=== PATIENT | female | born 2000 | race Caucasian/White ===

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

== ENCOUNTER 2022-03-09 13:19 | Emergency (ER) | payer OTHER, BC, SELFPAY ==
[2022-03-09 13:27] VITALS: BP 102/69; PULSE 85; RESP 12; TEMP 36.6; O2SAT 100; BMI 19.7
--- NOTE | 2022-03-09 13:30 | W.ED.ABDPA2 ---
HPI - Abdominal Pain General: Chief Complaint: Abdominal Pain Stated Complaint: abd pains Time Seen by Provider: 03/09/22 13:27 Source: patient and family (mother) Mode of arrival: ambulatory Limitations: no limitations History of Present Illness: Patient is a nice 21-year-old female who presents to ED today along with her mother after they were sent here from the [facility] for concerns of possible acute appendicitis. Patient tells me she began having pain to her right lower quadrant yesterday. She states since onset pain has progressively worsened. She does have feelings of nausea but has not had any episodes of emesis. She feels like bowel movements are normal but has noticed some bright red blood on the toilet paper when she wipes. Patient states she is currently on her menstrual cycle and is not sure if the blood could be coming from vagina. 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 She states her pain today does not feel anything like previous stones. She is not having any urinary symptoms. No fevers. MD elicited complaint: abdominal pain Onset (ago): day(s) (yesterday) Pain Consistency: constant Location: RLQ Quality: sharp Radiation: none Migration to: no migration Exacerbating factors: movement Relieving factors: nothing Associated Symptoms: Reports nausea and other (bright red blood when wiping but is not sure if this is menstrual blood); Denies change in bowel habits, change in stool character, chills, constipation, diarrhea, dysuria, fever(s), heartburn, hematochezia, hematuria, hematemesis, melena and vomiting Related Data: Patient : No Review of Systems Const: Denies: fever(s), chills, body aches, fatigue or malaise Card: Denies: chest pain Resp: Denies: dyspnea GI: Reports: abdominal pain, nausea and other (bright red blood when wiping but is not sure if this is menstrual blood); Denies: vomiting, hematemesis, heartburn, diarrhea, constipation, change in bowel habits, rectal pain, rectal swelling, rectal itching, change in stool character, hematochezia or melena : Reports: vaginal bleeding (on menstrual cycle); Denies: flank pain, difficulty voiding, dysuria, urinary frequency, urinary urgency, urinary hesitancy, oliguria, hematuria, vaginal odor or vaginal discharge Musc: Denies: neck pain, back pain, extremity pain or joint pain Skin/Breast: Denies: rash Neuro: Denies: headache(s) or dizziness PFSH ED PFSH: Social History Smoking and tobacco status: never smoked Alcohol intake: never Current gender identity: Female Female Reproductive History: Spontaneous abortions: No Physical Exam Const: COMMON NORMALS: no acute distress, average body habitus, patient oriented x3, no limitations, healthy appearing, alert and well nourished GENERAL APPEARANCE: cooperative ORIENTATION/CONSCIOUSNESS: Yes awake, Yes oriented to person, Yes oriented to place and Yes oriented to time Resp: COMMON NORMALS: normal respiratory effort and clear to auscultation bilaterally AUSCULTATION: clear to auscultation bilaterally Cardio: COMMON NORMALS: regular rate and regular rhythm RATE: regular rate RHYTHM: regular rhythm GI: COMMON NORMALS: Normal to inspection, nondistended, normoactive bowel sounds present, Soft to palpation, No hepatosplenomegaly present and no masses INSPECTION: Yes normal to inspection AUSCULTATION: Yes normoactive bowel sounds PALPATION: Yes Soft to palpation, Yes Tenderness to palpation present (GI) (grimaces with palpation over McBurney's Point) Details: RLQ, No Guarding due to palpation present (GI), No Rigid due to palpation and Yes No hepatosplenomegaly present : COMMON NORMALS: Yes no CVA tenderness BLADDER/KIDNEY EXAM: Yes no CVA tenderness Back/Pelvis: COMMON NORMALS: no CVA tenderness, thoracic and lumbar spine normal to inspection, no thoracic nor lumbar tenderness and thoraco-lumbar ROM normal Extremity: COMMON NORMALS: normal to inspection GENERAL: Yes normal exam except as noted Neuro: BIN COMA SCALE: document GCS findings Bin coma scale eye opening: Spontaneous Bin coma scale verbal response: Orientated [place] coma scale motor response: Obey commands Bin coma scale total score: 15 COMMON NORMALS: patient oriented x3, moves all extremities, no focal motor deficits, no sensory deficits noted and gait normal SENSORIUM/ORIENTATION: Yes alert, Yes oriented to person, Yes oriented to place and Yes oriented to time Skin: COMMON NORMALS: no rashes or lesions noted GENERAL SKIN EXAM: no rashes or lesions noted Course Vital Signs: Vital signs: Vital Signs Temperature 97.8 F 03/09/22 13:27 Pulse Rate 87 03/09/22 15:55 Respiratory Rate 16 03/09/22 15:55 Blood Pressure 113/66 03/09/22 15:55 Pulse Oximetry 98 03/09/22 15:55 Oxygen Delivery Me thod 03/09/22 13:27 MDM - Abdominal Pain Medical Decision Making Patient's vital signs are normal. Her blood work overall is unremarkable. CT imaging ordered due to patient's localized tenderness to her right lower quadrant. She has a normal appendix. There is no right ureter or kidney stones. Ovary appeared normal. She does have extensive fecal retention with a large amount of fecal material in her right adnexa most likely responsible for the discomfort that she is having. Radiologist did mention the possibility of early IBS/Crohn's disease. Mother states they will follow-up with patient's primary care regarding this. Discussed treatment for constipation including MiraLAX, Colace, Senokot, increasing fiber intake as well as other OTC medications if these are unsuccessful such as milk of mag and mag citrate. Return to ED precautions given. Lab Data : 03/09/22 14:02 03/09/22 14:02 Labs/Radiology: Radiology Impressions Abdomen/Pelvis CT 03/09/22 13:52 IMPRESSION: 1. Normal appendix. 2. No renal obstruction. Patient did have very small bilateral nonobstructing calculi within the renal pelves on a prior CT from 02/11/2019. A very tiny calculus noted in the LEFT kidney. These calcifications may be obscured by the IV contrast injection. 3. Extensive fecal retention. There is a large amount of fecal material in the RIGHT adnexa. Terminal ileum is difficult to visualize but there is a dilated loop of small bowel in the RIGHT pelvis measuring up to 18 mm. Early changes of IBS/Crohn's disease should be considered. Laboratory Results WBC 4.7 10^3/uL (4.5-13.0) 03/09/22 14:02 RBC 4.31 10^6/uL (4.1-5.3) 03/09/22 14:02 Hgb 12.9 g/dL (11.5-15.3) 03/09/22 14:02 Hct 39.5 % (37.0-47.0) 03/09/22 14:02 MCV 91.6 fl (81-99) 03/09/22 14:02 MCH 29.9 pg (28.0-34.0) 03/09/22 14:02 MCHC 32.7 g/dL (30.0-36.0) 03/09/22 14:02 RDW 13.8 % (12.1-15.1) 03/09/22 14:02 Plt Count 288 10^3/cmm (130-400) 03/09/22 14:02 MPV 10.3 fL (7.4-10.4) 03/09/22 14:02 Neut % (Auto) 34.0 % 03/09/22 14:02 Lymph % (Auto) 54.4 % 03/09/22 14:02 Bent % (Auto) 8.4 % 03/09/22 14:02 Eos % (Auto) 2.4 % 03/09/22 14:02 Baso % (Auto) 0.6 % 03/09/22 14:02 Neut # (Auto) 1.59 10^3/uL (1.8-8.0) L 03/09/22 14:02 Lymph # (Auto) 2.5 10^3/uL (1.5-6.5) 03/09/22 14:02 Bent # (Auto) 0.4 10^3/uL (0.2-0.9) 03/09/22 14:02 Eos # (Auto) 0.1 10^3/uL (0.0-0.8) 03/09/22 14:02 Baso # (Auto) 0.0 10^3/uL (0.0-0.1) 03/09/22 14:02 Nucleated RBC % (auto) 0 % 03/09/22 14:02 Nucleated RBCs # 0.0 /100WBC 03/09/22 14:02 Sodium 138 mmol/L (136-145) 03/09/22 14:02 Potassium 4.3 mmol/L (3.5-5.1) 03/09/22 14:02 Chloride 102 mmol/L (98-107) 03/09/22 14:02 Carbon Dioxide 26 mmol/L (22-29) 03/09/22 14:02 Anion Gap 14.3 (5-19) 03/09/22 14:02 BUN 12 mg/dL (6-20) 03/09/22 14:02 Creatinine 0.6 mg/dL (0.5-0.9) 03/09/22 14:02 GFR Calculation 128.8 mL/min (90-130) 03/09/22 14:02 Glucose 94 mg/dL (65-115) 03/09/22 14:02 Calculated Osmolality 286 mOsm/kg (285-295) 03/09/22 14:02 Calcium 9.3 mg/dL (8.5-10.5) 03/09/22 14:02 Total Bilirubin 0.4 mg/dL (0.15-1.2) 03/09/22 14:02 AST 17 U/L (0-32) 03/09/22 14:02 ALT 16 U/L (0-33) 03/09/22 14:02 Alkaline Phosphatase 55 U/L (35-105) 03/09/22 14:02 Total Protein 7.5 g/dL (6.6-8.7) 03/09/22 14:02 Albumin 4.8 g/dL (3.5-5.2) 03/09/22 14:02 Globulin 2.7 g/dL (1.3-4.6) 03/09/22 14:02 Lipase 29 U/L (13-60) 03/09/22 14:02 Urine HCG, Qual Negative (Negative) 03/09/22 14:02 Discharge Plan Discharge Patient Disposition: Home Clinical Impression: Fecal retention Qualifiers: Constipation type: unspecified constipation type Qualified Code(s): K59.00 - Constipation, unspecified Condition: Stable Prescriptions: No Action albuterol sulfate 90 mcg/actuation HFA aerosol inhaler 2 puff INHALATION Q6H PRN (Reason: shortness of breath or wheezing) Qty: 8.5 0RF citalopram [Celexa] 10 mg Tablet 10 mg PO DAILY PRN (Reason: Anxiety) Tylenol Ex Str Rapid Release 500 mg Tablet 1,000 mg PO Q6H PRN (Reason: Pain) ibuprofen 200 mg Tablet 800 mg PO Q6H PRN (Reason: Pain) Discharge Orders: Discharge ED (Routine); Ordered 03/09/22 Ordered By: Wendie Choe Referrals: Yanira Barbour FNP [Primary Care Provider] - Patient Instructions: Constipation (DC) Coding Level of Care Code ED Personnel Scheduler for Chg Fwd Exam Comprehensive
[2022-03-09 13:34] VITALS: BP 114/81; PULSE 81; O2SAT 100
--- NOTE | 2022-03-09 13:52 | CT_ITS ---
WS: [id number] CT ABDOMEN AND PELVIS WITH CONTRAST HISTORY: RLQ abdominal pain TECHNIQUE: Imaging performed of the abdomen and pelvis with IV contrast. Single phase imaging of the abdomen. Coronal and sagittal reformats are submitted. All CT scans at [facility] use at [address] one of these dose optimization techniques: automated exposure control; mA and/or kV adjustment per patient size (includes targeted exams where dose is matched to clinical indication); or iterative re construction. IV CONTRAST: Omnipaque 350; 95 mL IV. Oral contrast: No DLP: 326.73 mGy.cm COMPARISON: 02/11/2019 Lower thorax: Lung bases are clear. Heart is normal size. No hiatal hernia. Liver/biliary system: Normal size with no intrahepatic dilatation. Gallbladder: Normal. No gallstones or wall thickening. No pericholecystic fluid. Pancreas: Normal size pancreas and pancreatic duct. No adjacent inflammation. Spleen: Normal size spleen. No mass or infarct. Adrenal glands: Normal. Right kidney: Normal. Left kidney: No obstruction. There are a few tiny calculi present. Aorta: Normal. Lymphadenopathy: None. Free fluid: None. GI tract: There is extensive fecal retention and constipation throughout the colon. The cecum is very low-lying and extends into the RIGHT adnexa. It is difficult to visualize the terminal ileum. There is a loop of small bowel which may be the terminal ileum mildly distended with fluid and fecalization . No wall thickening. The appendix is normal. Abdominal wall: Unremarkable abdominal wall. No hernia. Pelvis: Retroverted uterus. Small amount of increased fluid within the endometrial canal which may be related to the menstrual cycle. Both ovaries are identified and contain small follicles. Bones: Unremarkable. CT/CT abdomen pelvis w con* [id number] IMPRESSION: 1. Normal appendix. 2. No renal obstruction. Patient did have very small bilateral nonobstructing calculi within the renal pelves on a prior CT from 02/11/2019. A very tiny calcul us noted in the LEFT kidney. These calcifications may be obscured by the IV con trast injection. 3. Extensive fecal retention. There is a large amount of fecal material in the RIGHT adnexa. Terminal ileum is difficult to visualize but there is a dilated l oop of small bowel in the RIGHT pelvis measuring up to 18 mm. Early changes of IBS/Crohn's disease should be considered.
[2022-03-09 14:11] LABS: Basophils % 0.6 %; Eosinophils # 0.1 10^3/uL (0.0-0.8); Eosinophils % 2.4 %; Hematocrit 39.5 % (37.0-47.0); Hemoglobin 12.9 g/dL (11.5-15.3); Lymphocytes # 2.5 10^3/uL (1.5-6.5); Lymphocytes % 54.4 %; Mean Corpuscular HGB Conc 32.7 g/dL (30.0-36.0); Mean Corpuscular Hemoglobin 29.9 pg (28.0-34.0); Mean Corpuscular Volume 91.6 fl (81-99); Mean Platelet Volume 10.3 fL (7.4-10.4); Monocytes # 0.4 10^3/uL (0.2-0.9); Monocytes % 8.4 %; Neutrophils # 1.59 10^3/uL (1.8-8.0); Nucleated Red Blood Cells % 0 %; Platelet Count 288 10^3/cmm (130-400); Red Blood Count 4.31 10^6/uL (4.1-5.3); Red Cell Distribution Width 13.8 % (12.1-15.1); White Blood Count 4.7 10^3/uL (4.5-13.0)
--- NOTE | 2022-03-09 14:11 | PC.NURSE ---
pt reports right sided suprapubic pain worse with palpation that began last night. describes pain as sharp and constant. reports nausea, denies fevers, diarrhea, or fevers. Denies hx of ovarian cysts but does have immediate family members with that hx. denies dysuria. pt resting in bed, skin pink/warm/dry. lung sounds clear bilat. bowel sounds present x4.
[2022-03-09 14:28] LABS: Alanine Aminotransferase 16 U/L (0-33); Albumin Level 4.8 g/dL (3.5-5.2); Alkaline Phosphatase 55 U/L (35-105); Anion Gap 14.3 (5-19); Aspartate Amino Transferase 17 U/L (0-32); Blood Urea Nitrogen 12 mg/dL (6-20); Calcium 9.3 mg/dL (8.5-10.5); Carbon Dioxide 26 mmol/L (22-29); Chloride 102 mmol/L (98-107); Globulin 2.7 g/dL (1.3-4.6); Glomerular Filtration Rate 128.8 mL/min (90-130); Glucose 94 mg/dL (65-115); Lipase 29 U/L (13-60); Osmolality Calculated 286 mOsm/kg (285-295); Potassium 4.3 mmol/L (3.5-5.1); Sodium 138 mmol/L (136-145); Total Bilirubin 0.4 mg/dL (0.15-1.2); Total Protein 7.5 g/dL (6.6-8.7)
[2022-03-09 14:34] VITALS: BP 116/70; PULSE 86; O2SAT 99
[2022-03-09] MEDS: iohexol 350 mg/mL 100 mL Btl IV (14:58)
[2022-03-09 15:55] VITALS: BP 113/66; PULSE 87; RESP 16; O2SAT 98
== END 2022-03-09 15:57 | disposition home or self-care (01) ==
PROVIDERS: Emergency Medicine; Emergency Provider Physician Assistant; PCP Nurse Practitioner Family
DX: K59.00 Constipation, unspecified (principal)
CPT/HCPCS: 36415; 74177; 80053; 81000; 81025; 83690; 85025; 99285; Q9967